=== PATIENT | female | born 1995 | race Caucasian/White ===

== ENCOUNTER 2018-07-14 16:21 | Inpatient (IN) | payer MEDICAID ==
[~2018-07-14] VITALS: Ht 170.2 cm; Wt 81.4 kg
[2018-07-14 17:42] LABS: CULTURE INDICATED? YES; MICROSCOPIC INDICATED
[2018-07-14 17:48] LABS: BASOPHILS % (AUTO) 0 % (0-1); EOSINOPHILS % (AUTO) 0 % (1-7); LYMPHOCYTES # (AUTO) 0.85 x10^3/uL (1-3.4); LYMPHOCYTES % (AUTO) 8 % (22-44); MD NO; MEAN CORPUSCULAR HEMOGLOBIN 30.8 pg (27.0-34.8); MEAN CORPUSCULAR HGB CONC 34.9 g/dL (32.4-35.8); MEAN CORPUSCULAR VOLUME 88.3 fL (80-100); MEAN PLATELET VOLUME 8.5 fL (7.4-10.4); MONOCYTES # (AUTO) 0.55 x10^3/uL (0.2-0.8); MONOCYTES % (AUTO) 5 % (2-9); NEUTROPHILS # (AUTO) 9.41 x10^3/uL (1.8-6.8); NEUTROPHILS % (AUTO) 87 % (42-75); PLATELET COUNT 198 x10^3/uL (130-400); RED BLOOD COUNT 4.07 x10^6/uL (3.82-5.3)
[2018-07-14 17:49] LABS: ALBUMIN 2.9 g/dL (3.4-5.0); ANION GAP 8 mmol/L (5-15); CALCIUM 7.8 mg/dL (8.5-10.1); CHLORIDE 105 mmol/L (98-107); CREATININE 0.73 mg/dL (0.55-1.02)
[2018-07-14] MEDS ORDERED: MORPHINE SULFATE 4 MG/ML, 1ML IVPush PRN (18:30)
[2018-07-14] MEDS ORDERED: SODIUM CHLORIDE 0.9% 1,000ML IVBOLUS ONE (18:30)
[2018-07-14] MEDS ORDERED: CEFTRIAXONE PMX 1GM/50ML 50 ML IV ONE (18:30)
[2018-07-14] MEDS ORDERED: ACETAMINOPHEN 500 MG TABLET PO ONE (18:30)
[2018-07-14] MEDS ORDERED: MORPHINE SULFATE 4 MG/ML, 1ML ONE (18:37)
[2018-07-14] MEDS ORDERED: ACETAMINOPHEN 500 MG TABLET ONE (18:37)
--- NOTE | 2018-07-14 18:54 | NUR ---
Bedside SBAR report received from RNMichael. Pt resting on [place]ogreet, IVF running, pt has been medicated for pain and pt is aware of plan to be admitted.
[2018-07-14] MEDS ORDERED: CEFTRIAXONE PMX 1GM/50ML 50 ML ONE (19:13)
[2018-07-14] MEDS ORDERED: prenatals PO (19:33)
--- NOTE | 2018-07-14 19:35 | NUR ---
Telephone SBAR report called to Dayan DE LA GARZA. Pt made aware of new room assignment.
[2018-07-14] MEDS: SODIUM CHLORIDE 0.9% 1,000 ML IV SCH (20:29)
[2018-07-14] MEDS ORDERED: morphine SULFATE 10 MG/ML, 1ML IVPush PRN (20:30)
[2018-07-14] MEDS ORDERED: DOCUSATE 100 MG CAPSULE PO PRN (20:30)
[2018-07-14 20:38] VITALS: BP 122/59
[2018-07-15] MEDS: ACETAMINOPHEN 325 MG TABLET PO PRN (00:32)
[2018-07-15 00:40] VITALS: BP 127/59
[2018-07-15] MEDS: ONDANSETRON 2MG/ML, 2ML IVPush PRN ×2 (01:15→12:50)
[2018-07-15 02:00] VITALS: BP 122/63
[2018-07-15] MEDS: SODIUM CHLORIDE 0.9% 1,000 ML IV SCH ×3 (04:29→21:22)
[2018-07-15] MEDS: morphine SULFATE 10 MG/ML, 1ML IVPush PRN ×3 (04:31→12:50)
[2018-07-15 04:56] LABS: BASOPHILS # (AUTO) 0.01 x10^3/uL (0-0.1); BASOPHILS % (AUTO) 0 % (0-1); EOSINOPHILS % (AUTO) 0 % (1-7); LYMPHOCYTES # (AUTO) 0.98 x10^3/uL (1-3.4); LYMPHOCYTES % (AUTO) 10 % (22-44); MD NO; MEAN CORPUSCULAR HEMOGLOBIN 31.5 pg (27.0-34.8); MEAN CORPUSCULAR HGB CONC 35.4 g/dL (32.4-35.8); MEAN PLATELET VOLUME 8.5 fL (7.4-10.4); MONOCYTES # (AUTO) 0.76 x10^3/uL (0.2-0.8); MONOCYTES % (AUTO) 7 % (2-9); NEUTROPHILS # (AUTO) 8.51 x10^3/uL (1.8-6.8); NEUTROPHILS % (AUTO) 83 % (42-75); PLATELET COUNT 168 x10^3/uL (130-400); RED BLOOD COUNT 3.37 x10^6/uL (3.82-5.3); RED CELL DISTRIBUTION WIDTH 13.8 % (9.6-15.2)
[2018-07-15 05:04] LABS: ANION GAP 8 mmol/L (5-15); CALCIUM 7.2 mg/dL (8.5-10.1); CHLORIDE 109 mmol/L (98-107); CREATININE 0.56 mg/dL (0.55-1.02)
[2018-07-15] MEDS: CEFTRIAXONE PMX 1GM/50ML 50 ML IV SCH ×2 (06:33→18:30)
[2018-07-15 07:43] VITALS: BP 102/66
[2018-07-15] MEDS ORDERED: POLYETHYLENE GLYCOL 17 GM PACKET NG PRN (09:00)
[2018-07-15 14:07] LABS: ALANINE AMINOTRANSFERASE 13 U/L (12-78); ALBUMIN 2.2 g/dL (3.4-5.0)
[2018-07-15 14:09] LABS: ALKALINE PHOSPHATASE 74 U/L (45-117); BILIRUBIN,TOTAL 0.4 mg/dL (0.2-1.0); TOTAL PROTEIN 5.5 g/dL (6.4-8.2)
[2018-07-15 14:25] LABS: BILIRUBIN, DIRECT < 0.1 mg/dL (0.1-0.2); BILIRUBIN,INDIRECT 0.3 mg/dL (0.0-2.0)
[2018-07-15 15:06] VITALS: BP 113/70
[2018-07-15] MEDS ORDERED: LIDODERM 5% PATCH TD PRN (19:00)
[2018-07-15] MEDS ORDERED: LIDODERM 5% PATCH TD SCH (19:00)
[2018-07-15 19:10] VITALS: BP 117/63
[2018-07-15 22:40] LABS: CLOSTRIDIUM DIFFICILE ANTIGEN POSITIVE
[2018-07-15 22:41] LABS: CLOSTRIDIUM DIFFICILE TOXIN POSITIVE (Negative)
[2018-07-16] MEDS: VANCOMYCIN 50 MG/ML ORAL SUSP PO SCH ×5 (00:02→21:19)
[2018-07-16 00:35] VITALS: BP 107/66
[2018-07-16] MEDS: SODIUM CHLORIDE 0.9% 1,000 ML IV SCH ×2 (05:18→14:40)
[2018-07-16 06:03] LABS: ANION GAP 7 mmol/L (5-15); CALCIUM 7.3 mg/dL (8.5-10.1); CHLORIDE 110 mmol/L (98-107)
[2018-07-16 06:05] LABS: CREATININE 0.47 mg/dL (0.55-1.02)
[2018-07-16 06:14] LABS: BASOPHILS # (AUTO) 0.01 x10^3/uL (0-0.1); BASOPHILS % (AUTO) 0 % (0-1); EOSINOPHILS # (AUTO) 0.11 x10^3/uL (0-0.4); EOSINOPHILS % (AUTO) 2 % (1-7); LYMPHOCYTES # (AUTO) 1.01 x10^3/uL (1-3.4); LYMPHOCYTES % (AUTO) 13 % (22-44); MD NO; MEAN CORPUSCULAR HEMOGLOBIN 30.7 pg (27.0-34.8); MEAN CORPUSCULAR HGB CONC 34.2 g/dL (32.4-35.8); MEAN CORPUSCULAR VOLUME 89.6 fL (80-100); MEAN PLATELET VOLUME 8.5 fL (7.4-10.4); MONOCYTES # (AUTO) 0.73 x10^3/uL (0.2-0.8); MONOCYTES % (AUTO) 10 % (2-9); NEUTROPHILS # (AUTO) 5.67 x10^3/uL (1.8-6.8); NEUTROPHILS % (AUTO) 75 % (42-75); PLATELET COUNT 147 x10^3/uL (130-400); RED BLOOD COUNT 3.14 x10^6/uL (3.82-5.3); RED CELL DISTRIBUTION WIDTH 14.1 % (9.6-15.2)
[2018-07-16] MEDS: CEFTRIAXONE PMX 1GM/50ML 50 ML IV SCH (06:33)
[2018-07-16 07:31] VITALS: BP 100/64
[2018-07-16 14:42] VITALS: BP 90/52
[2018-07-16] MEDS ORDERED: POTASSIUM CHLORIDE 20 MEQ TAB.ER.PRT PO ONE (16:30)
[2018-07-16] MEDS: CEFTRIAXONE PMX 2GM/50ML 50 ML IV SCH (18:37)
[2018-07-16 20:34] VITALS: BP 99/66
[2018-07-17 01:26] VITALS: BP 144/78
[2018-07-17] MEDS: SODIUM CHLORIDE 0.9% 1,000 ML IV SCH ×3 (06:06→15:55)
[2018-07-17] MEDS: VANCOMYCIN 50 MG/ML ORAL SUSP PO SCH ×4 (06:07→20:50)
[2018-07-17 07:37] VITALS: BP 90/43
[2018-07-17 09:05] VITALS: BP 103/66
[2018-07-17] MEDS: ONDANSETRON 2MG/ML, 2ML IVPush PRN (11:09)
[2018-07-17 13:54] VITALS: BP 96/60
[2018-07-17] MEDS: CEFTRIAXONE PMX 2GM/50ML 50 ML IV SCH (18:20)
[2018-07-17 20:18] VITALS: BP 97/65
[2018-07-18] MEDS: SODIUM CHLORIDE 0.9% 1,000 ML IV SCH ×3 (00:05→15:58)
[2018-07-18 02:12] VITALS: BP 94/63
[2018-07-18] MEDS: VANCOMYCIN 50 MG/ML ORAL SUSP PO SCH ×4 (05:21→21:22)
[2018-07-18] MEDS: ACETAMINOPHEN 325 MG TABLET PO PRN (05:25)
[2018-07-18 05:53] LABS: ALBUMIN 1.8 g/dL (3.4-5.0); ANION GAP 4 mmol/L (5-15); CHLORIDE 113 mmol/L (98-107)
[2018-07-18 06:03] LABS: ALANINE AMINOTRANSFERASE 10 U/L (12-78); ALKALINE PHOSPHATASE 65 U/L (45-117); BILIRUBIN,TOTAL 0.3 mg/dL (0.2-1.0); CREATININE 0.41 mg/dL (0.55-1.02); TOTAL PROTEIN 4.8 g/dL (6.4-8.2)
[2018-07-18 06:26] LABS: BASOPHILS # (AUTO) 0.01 x10^3/uL (0-0.1); BASOPHILS % (AUTO) 0 % (0-1); EOSINOPHILS % (AUTO) 2 % (1-7); LYMPHOCYTES # (AUTO) 1.27 x10^3/uL (1-3.4); LYMPHOCYTES % (AUTO) 27 % (22-44); MD NO; MEAN CORPUSCULAR HEMOGLOBIN 30.2 pg (27.0-34.8); MEAN CORPUSCULAR HGB CONC 33.8 g/dL (32.4-35.8); MEAN CORPUSCULAR VOLUME 89.6 fL (80-100); MEAN PLATELET VOLUME 9.2 fL (7.4-10.4); MONOCYTES # (AUTO) 0.45 x10^3/uL (0.2-0.8); MONOCYTES % (AUTO) 10 % (2-9); NEUTROPHILS % (AUTO) 61 % (42-75); PLATELET COUNT 152 x10^3/uL (130-400); RED BLOOD COUNT 2.89 x10^6/uL (3.82-5.3); RED CELL DISTRIBUTION WIDTH 13.9 % (9.6-15.2)
[2018-07-18 06:51] LABS: HCT (SEDRATE) 28.1 % (34.6-47.8)
[2018-07-18 08:07] VITALS: BP 106/67
[2018-07-18] MEDS ORDERED: POTASSIUM CHLORIDE 20 MEQ TAB.ER.PRT PO ONE (12:30)
[2018-07-18 12:36] VITALS: BP 110/72
[2018-07-18] MEDS: CEFTRIAXONE PMX 2GM/50ML 50 ML IV SCH (14:15)
[2018-07-18] MEDS: ONDANSETRON 2MG/ML, 2ML IVPush PRN (17:01)
[2018-07-18 20:27] VITALS: BP 114/72
[2018-07-19] MEDS: SODIUM CHLORIDE 0.9% 1,000 ML IV SCH ×2 (00:16→08:00)
[2018-07-19 00:19] VITALS: BP 105/66
[2018-07-19] MEDS: VANCOMYCIN 50 MG/ML ORAL SUSP PO SCH ×2 (05:17→10:52)
[2018-07-19] MEDS: ACETAMINOPHEN 325 MG TABLET PO PRN (05:25)
[2018-07-19 05:54] LABS: CHLORIDE 113 mmol/L (98-107)
[2018-07-19 06:00] LABS: ANION GAP 6 mmol/L (5-15); CALCIUM 7.2 mg/dL (8.5-10.1); CREATININE 0.47 mg/dL (0.55-1.02)
[2018-07-19 07:41] VITALS: BP 106/67
[2018-07-19] MEDS ORDERED: VANC1VIA3 PO (11:03)
[2018-07-19] MEDS ORDERED: CEFT2VIA53 IV (11:03)
[2018-07-19] MEDS: CEFTRIAXONE PMX 2GM/50ML 50 ML IV SCH (12:52)
== END 2018-07-19 14:35 | disposition home or self-care (01) | DRG 831 ==
LOC: ED 18:31 → 4NOR 19:11
PROVIDERS: ADMIT Internal Medicine; ATTEND Internal Medicine
PROC: 02HV33Z Insertion of Infusion Device into Superior Vena Cava, Percutaneous Approach (ICD-10-PCS; principal; 2018-07-17)
PROC: B5181ZA Fluoroscopy of Superior Vena Cava using Low Osmolar Contrast, Guidance (ICD-10-PCS; 2018-07-17)
PROC: B548ZZA Ultrasonography of Superior Vena Cava, Guidance (ICD-10-PCS; 2018-07-17)
DX: O98.812 Other maternal infectious and parasitic diseases complicating pregnancy, second trimester (principal); A41.9 Sepsis, unspecified organism; A04.72 Enterocolitis due to Clostridium difficile, not specified as recurrent; O23.02 Infections of kidney in pregnancy, second trimester; N13.30 Unspecified hydronephrosis; Z3A.19 19 weeks gestation of pregnancy; B96.20 Unspecified Escherichia coli [E. coli] as the cause of diseases classified elsewhere; O99.282 Endocrine, nutritional and metabolic diseases complicating pregnancy, second trimester; E87.6 Hypokalemia; O26.22 Pregnancy care for patient with recurrent pregnancy loss, second trimester; Z80.49 Family history of malignant neoplasm of other genital organs; N96 Recurrent pregnancy loss; K59.00 Constipation, unspecified; Z87.440 Personal history of urinary (tract) infections
CPT/HCPCS: 36415; 99285; J3370; 36573; 76700; 80048; 80053; 80076; 81001; 82040; 83605; 85025; 85651; 86140; 87040; 87077; 87086; 87186; 87324; 96361; 96365; 96375; G0378; J0696; J2405; C1751; J2270; J7030

== ENCOUNTER 2018-10-21 18:04 | Outpatient (CLI) | payer MEDICAID ==
[~2018-10-21] VITALS: Ht 170.2 cm; Wt 85.0 kg
[~2018-10-21 18:04] MED LIST: CEFT2VIA53 IV; VANC1VIA3 PO; prenatals PO
[2018-10-21] MEDS ORDERED: ACETAMINOPHEN 325 MG TABLET ONE (18:48)
[2018-10-21] MEDS ORDERED: ACETAMINOPHEN 325 MG TABLET PO PRN (19:00)
[2018-10-21 19:02] LABS: MICROSCOPIC NOT IND
== END 2018-10-21 20:22 | disposition home or self-care (01) ==
LOC: LDOP 18:04
PROVIDERS: ATTEND Obstetrics & Gynecology
DX: O62.9 Abnormality of forces of labor, unspecified (principal); Z88.0 Allergy status to penicillin; Z88.1 Allergy status to other antibiotic agents; Z88.8 Allergy status to other drugs, medicaments and biological substances; Z3A.32 32 weeks gestation of pregnancy
CPT/HCPCS: 59025; 81003; 87086; 99201; G0463

== ENCOUNTER 2018-10-26 09:08 | Outpatient (CLI) | payer MEDICAID ==
[~2018-10-26] VITALS: Ht 170.2 cm; Wt 85.0 kg
[2018-10-26 09:33] VITALS: BP 123/59
== END 2018-10-26 10:41 | disposition home or self-care (01) ==
LOC: LDOP 09:08
PROVIDERS: ATTEND Obstetrics & Gynecology
DX: O36.8130 Decreased fetal movements, third trimester, not applicable or unspecified (principal); Z3A.33 33 weeks gestation of pregnancy
CPT/HCPCS: 59025; 99211; G0463